=== PATIENT | male | born 1990 | race Caucasian/White ===

== ENCOUNTER 2017-04-10 19:11 | Observation (INO) ==
[2017-04-10 19:35] LABS: Basophils # 0.1 K/mcL (0.0-0.2); Basophils % 0.5 %; Eosinophils % 0.1 %; Hemoglobin 17.1 g/dL (12.9-16.9); Immature Granulocytes % 0.8 % (0-4); Lymphocytes # 0.8 K/mcL (0.6-4.6); Lymphocytes % 4.2 %; Mean Corpuscular HGB Conc 34.2 g/dL (31.6-35.5); Mean Corpuscular Hemoglobin 31.2 pg (28.0-33.3); Mean Corpuscular Volume 91.2 fL (83.0-100.0); Mean Platelet Volume 9.7 fL (9.4-12.4); Monocytes # 1.2 K/mcL (0.0-1.3); Monocytes % 6.4 %; Neutrophils # 16.4 K/mcL (1.6-8.9); Platelet Count 420 K/mcL (140-400); Red Blood Count 5.48 M/mcL (4.19-5.50); Red Cell Distribution Width 13.2 % (11.5-14.5)
--- NOTE | 2017-04-10 19:39 | Emergency Department Note ---
Disposition Clinical Impression: DKA (diabetic ketoacidoses), Hyperglycemia Disposition: Admitted As Inpatient Condition: Good Time of Disposition: 00:00 ([facility]) SOB HPI - General Chief Complaint: ED Shortness of Breath/Dyspnea Stated Complaint: Dypnea, wheezing, high blood sugar Time Seen by Provider: 04/10/17 19:15 Source: patient Mode of arrival: ambulatory Limitations: no limitations Nursing Notes Reviewed: Yes Vital Signs Reviewed: Yes - History of Present Illness PT seen earlier at the urgent care they did not check his sugar he presents for she will shortness of breath dyspnea wheezing lightheadedness patient states that he does not feel well patient states he is unable to catch his breath feels lightheaded and dizzy like to pass out denies diarrhea melena hematochezia or hematemesis he is a diabetic he states the last time he had DKA was a number of years ago he states has been drinking limits he has been sick for about a week Pt Subjective Complaint: shortness of breath Onset (ago): hour(s) Context: recent illness Severity: severe Consistency/Duration: constant, gradually worsening Improves with: nothing Worsens with: exertion Known history of: asthma, diabetes Associated symptoms: Reports: wheezing, palpitations, diaphoresis. Denies: chest pain, pain with inspiration, fever, cough, sputum production, lower extremity pain, polyuria, polydipsia, parasthesias, hemoptysis, nausea/vomiting , syncope, abdominal pain, sense of impending doom Treatment prior to arrival: oxygen, bronchodilator Cough present: No Sputum production: No - Related Data Home Medications Medication Instructions Recorded Confirmed Insulin ASPART [NovoLOG] 100 unit SQ DAILY 04/09/17 04/10/17 Previous Rx's Medication Instructions Recorded Benzonatate [Tessalon] 100 mg PO TID #15 capsule 04/09/17 Ibuprofen [Motrin] 800 mg PO Q8HR #30 tablet 04/09/17 Ondansetron HCl [Zofran] 4 mg PO TID #15 tablet 04/09/17 Allergies Allergy/AdvReac Type Severity Reaction Status Date / Time No Known Allergies Allergy Verified 04/09/17 10:16 All systems ED: reviewed and negative except as stated. Review of Systems: As Per HPI Constitutional: Reports: weakness. Denies: fever, chills Eyes: Denies: eye pain, eye discharge ENT ED: Denies: ear pain, throat pain Cardiovascular: Reports: palpitations, dyspnea on exertion Respiratory: Reports: dyspnea, wheezes, sputum production. Denies: cough Gastrointestinal: Denies: abdominal pain, nausea, vomiting Genitourinary: Denies: urgency, dysuria, frequency, testicular mass, genital lesions Musculoskeletal: Denies: back pain Integumentary: Denies: rash, abrasion Neurological: Reports: weakness. Denies: headache Psychiatric: Reports: anxiety. Denies: depression Endocrine: Denies: fatigue Hematological/Lymphatic: Denies: easy bleeding Allergic/Immunologic: Denies: facial swelling Past Medical History - Past Medical History Attestation: Yes The following information was validated with the patient. Source: patient, old records reviewed, nursing notes reviewed Medical history: Reports: non-contributory Surgical history: Reports: no surgical history - Social History Smoking Status: Never smoker Smokeless Tobacco Status: No Alcohol use: Reports: none Drug use: Reports: none Physical Exam - General Limitations: no limitations General appearance: alert, in no apparent distress, anxious - Head Head exam: atraumatic, normocephalic, normal inspection - Eye Eye exam: Present: normal appearance, PERRL, EOMI - ENT ENT exam: normal exam, normal oropharynx, mucous membranes moist, TM's normal bilaterally, normal external ear exam - Neck Neck exam: Present: normal inspection, full ROM, trachea midline - Chest Chest inspection: Present: normal inspection, symmetric chest wall rise - Respiratory Respiratory exam: Present: accessory muscle use, prolonged expiratory phase, other (tahypnea) - Cardiovascular Cardiovascular exam: Present: regular rate, normal rhythm, normal heart sounds - Abdominal Exam Abdominal exam: Present: soft, Non-Tender, normal bowel sounds. Absent: mass, pulsatile mass - Extremities Exam Extremities exam: Present: normal inspection, full ROM, normal capillary refill. Absent: tenderness, pedal edema, joint swelling, calf tenderness - Expanded Lower Extremity Exam Neurovascular/Tendon exam: Present: normal capillary refill, normal fine/light touch Gait: observed and normal - Back Exam Back exam: Present: normal inspection, full ROM. Absent: muscle spasm - Neurological Exam Neurological exam: Present: alert, oriented X3, CN II-XII intact, normal gait - Psychiatric Psychiatric exam: Present: normal affect, normal mood - Skin Skin exam: Present: warm, dry, intact, normal color Course Course Narrative: Patient comes in tachypnic tachycardic with respiratory symptoms the patient is a known diabetic and his got worse today this may be secondary to DKA patient given fluids given aerosols enroute by EMS - Reevaluation(s) Reevaluation #1: labs were repeated showing improvement discussed again with Dr. Diaz his agreed for admission, Vital Signs Temperature 97.9 F 04/10/17 19:14 Pulse Rate 138 04/10/17 19:14 Respiratory Rate 32 04/10/17 19:14 Blood Pressure 132/80 04/10/17 19:14 O2 Sat by Pulse Oximetry 100 04/10/17 19:14 Temperature 98.3 F 04/11/17 01:25 Pulse Rate 125 04/11/17 01:25 Respiratory Rate 28 04/11/17 01:25 Blood Pressure 100/60 04/11/17 01:25 O2 Sat by Pulse Oximetry 100 04/11/17 02:00 Oxygen Delivery Oxygen Delivery Room Air Shortness of Breath/Dyspnea - [facility] Narrative Medical decision making narrative: Diabetic ketoacidosis hyperosmolar coma dehydration possibility of brought on by pneumonia upper respiratory cold or infectious type process or may have mimicked a upper wrist for a cold track or infection - Differential Diagnosis Likely: pneumonia - Medical Records Medical records reviewed: Yes I reviewed the patient's medical records. - Lab Data Lab results reviewed: Yes I reviewed the patient's lab results. Result diagrams: 04/10/17 19:30 04/10/17 23:10 Lab Results 04/10/17 04/10/17 04/10/17 Range/Units 19:30 19:30 19:30 WBC 18.6 H (4.3-11.1) K/mcL RBC 5.48 (4.19-5.50) M/mcL Hgb 17.1 H (12.9-16.9) g/dL Hct 50.0 (37.5-50.1) % MCV 91.2 (83.0-100.0) fL MCH 31.2 (28.0-33.3) pg MCHC 34.2 (31.6-35.5) g/dL RDW 13.2 (11.5-14.5) % Plt Count 420 H (140-400) K/mcL MPV 9.7 (9.4-12.4) fL Immature Gran % 0.8 (0-4) % Seg Neutrophils % 88.0 % Lymphocytes % 4.2 % Monocytes % 6.4 % Eosinophils % 0.1 % Basophils % 0.5 % Neutrophils # 16.4 H (1.6-8.9) K/mcL Lymphocytes # 0.8 (0.6-4.6) K/mcL Monocytes # 1.2 (0.0-1.3) K/mcL Eosinophils # 0.0 (0.0-0.6) K/mcL Basophils # 0.1 (0.0-0.2) K/mcL PT (9.4-12.1) Seconds INR APTT 26.1 (26.0-36.0) Seconds Sodium (136-145) mEq/L Potassium (3.5-4.5) mEq/L Chloride (98-109) mEq/L Carbon Dioxide (19-29) mEq/L BUN (8-26) mg/dL Creatinine (0.72-1.25) mg/dL Est GFR ( Amer) (> 60) Est GFR (Non-Af Amer) (> 60) BUN/Creatinine Ratio (6-26) Glucose (70-99) mg/dL POC Glucose (58-89) Calculated Osmolality (280-300) Lactic Acid (0.5-2.2) mmol/L Calcium (8.6-10.8) mg/dL Total Bilirubin (0.2-1.2) mg/dL AST (5-34) Units/L ALT (0-55) Units/L Alkaline Phosphatase (38-126) Units/L Serum Total Protein (6.0-8.3) g/dL Albumin (3.5-5.0) g/dL Globulin (2.4-3.5) g/dL Albumin/Globulin Ratio (1.1-2.2) Beta-Hydroxybutyric Acd > 2.00 H (0.02-0.27) mmol/L Carbamazepine (4.0-12.0) mcg/mL 04/10/17 04/10/17 04/10/17 Range/Units 19:30 19:30 19:30 WBC (4.3-11.1) K/mcL RBC (4.19-5.50) M/mcL Hgb (12.9-16.9) g/dL Hct (37.5-50.1) % MCV (83.0-100.0) fL MCH (28.0-33.3) pg MCHC (31.6-35.5) g/dL RDW (11.5-14.5) % Plt Count (140-400) K/mcL MPV (9.4-12.4) fL Immature Gran % (0-4) % Seg Neutrophils % % Lymphocytes % % Monocytes % % Eosinophils % % Basophils % % Neutrophils # (1.6-8.9) K/mcL Lymphocytes # (0.6-4.6) K/mcL Monocytes # (0.0-1.3) K/mcL Eosinophils # (0.0-0.6) K/mcL Basophils # (0.0-0.2) K/mcL PT 11.7 (9.4-12.1) Seconds INR 1.1 APTT (26.0-36.0) Seconds Sodium 132 L (136-145) mEq/L Potassium 4.8 H (3.5-4.5) mEq/L Chloride 104 (98-109) mEq/L Carbon Dioxide 5 L* (19-29) mEq/L BUN 13 (8-26) mg/dL Creatinine 1.45 H (0.72-1.25) mg/dL Est GFR ( Amer) > 60 (> 60) Est GFR (Non-Af Amer) 59 L (> 60) BUN/Creatinine Ratio 9 (6-26) Glucose 460 H (70-99) mg/dL POC Glucose (58-89) Calculated Osmolality 294 (280-300) Lactic Acid (0.5-2.2) mmol/L Calcium 8.7 (8.6-10.8) mg/dL Total Bilirubin 0.2 (0.2-1.2) mg/dL AST 11 (5-34) Units/L ALT 21 (0-55) Units/L Alkaline Phosphatase 142 H (38-126) Units/L Serum Total Protein 7.5 (6.0-8.3) g/dL Albumin 3.9 (3.5-5.0) g/dL Globulin 3.6 H (2.4-3.5) g/dL Albumin/Globulin Ratio 1.1 (1.1-2.2) Beta-Hydroxybutyric Acd (0.02-0.27) mmol/L Carbamazepine 0.0 L (4.0-12.0) mcg/mL 04/10/17 04/10/17 04/10/17 Range/Units 20:49 20:56 23:10 WBC (4.3-11.1) K/mcL RBC (4.19-5.50) M/mcL Hgb (12.9-16.9) g/dL Hct (37.5-50.1) % MCV (83.0-100.0) fL MCH (28.0-33.3) pg MCHC (31.6-35.5) g/dL RDW (11.5-14.5) % Plt Count (140-400) K/mcL MPV (9.4-12.4) fL Immature Gran % (0-4) % Seg Neutrophils % % Lymphocytes % % Monocytes % % Eosinophils % % Basophils % % Neutrophils # (1.6-8.9) K/mcL Lymphocytes # (0.6-4.6) K/mcL Monocytes # (0.0-1.3) K/mcL Eosinophils # (0.0-0.6) K/mcL Basophils # (0.0-0.2) K/mcL PT (9.4-12.1) Seconds INR APTT (26.0-36.0) Seconds Sodium 136 (136-145) mEq/L Potassium 3.7 D (3.5-4.5) mEq/L Chloride 107 (98-109) mEq/L Carbon Dioxide 6 L* (19-29) mEq/L BUN 11 (8-26) mg/dL Creatinine 0.96 (0.72-1.25) mg/dL Est GFR ( Amer) > 60 (> 60) Est GFR (Non-Af Amer) > 60 (> 60) BUN/Creatinine Ratio 11 (6-26) Glucose 301 H (70-99) mg/dL POC Glucose 330 H (58-89) Calculated Osmolality 293 (280-300) Lactic Acid 2.4 H (0.5-2.2) mmol/L Calcium 7.3 L D (8.6-10.8) mg/dL Total Bilirubin 0.3 (0.2-1.2) mg/dL AST 10 (5-34) Units/L ALT 16 (0-55) Units/L Alkaline Phosphatase 106 (38-126) Units/L Serum Total Protein 5.8 L D (6.0-8.3) g/dL Albumin 3.1 L D (3.5-5.0) g/dL Globulin 2.7 (2.4-3.5) g/dL Albumin/Globulin Ratio 1.1 (1.1-2.2) Beta-Hydroxybutyric Acd (0.02-0.27) mmol/L Carbamazepine (4.0-12.0) mcg/mL - Radiology Data Radiology results reviewed: Yes I reviewed the patient's radiology results. ITS Impressions Chest X-Ray 04/10/17 19:18 IMPRESSION: No acute findings. D/ / Atilio Thibodeaux / Atilio Thibodeaux Interpreting Provider: Atilio Thibodeaux - EKG Data EKG attestation: Yes I reviewed and interpreted this EKG. EKG results narrative: Sinus tach nonspecific T-wave changes rate 133 P-R 111 QRS 96 QT 309 axis LX Critical Care Time Critical Care Time: Yes Total Critical Care Time: 45 Attestation: Critical care performed: 85 minutes as a result of the patient being in diabetic ketoacidosis that his sugars in the 400s he is showing evidence without elevated beta hydroxybutyrate as well as the respiratory distress and abnormality of the lab showing these CO2 of 5 determining the etiology for this IV hydration given in the IV bicarbonate and then transferring to [facility] for further management patient has an insulin pump we will use this for continued management of his insulin with intermittent dosing of subcutaneous insulin Time is exclusive of separately billable procedures. Time includes: direct patient care, patient reassessment, coordination of patient care, interpretation of data (laboratory data, radiology data, and respiratory data), review of patient's medical records, medical consultation and documentation of patient care. Procedures included in critical care time: Procedures excluded from critical care time:
[2017-04-10 19:40] LABS: INR 1.1; Prothrombin Time 11.7 Seconds (9.4-12.1)
[2017-04-10] MEDS ORDERED: Insulin Regular, Human 100 UNIT/ML SQ ONE (19:45)
[2017-04-10] MEDS: 0.9 % Sodium Chloride 1,000 ML IVC SCH ×2 (20:20→23:15)
[2017-04-10 20:36] LABS: Alanine Aminotransferase 21 Units/L (0-55); Albumin 3.9 g/dL (3.5-5.0); Albumin/Globulin Ratio 1.1 (1.1-2.2); Alkaline Phosphatase 142 Units/L (38-126); Aspartate Amino Transferase 11 Units/L (5-34); BUN/Creatinine Ratio 9 (6-26); Bilirubin,Total 0.2 mg/dL (0.2-1.2); Blood Urea Nitrogen 13 mg/dL (8-26); Calcium 8.7 mg/dL (8.6-10.8); Chloride 104 mEq/L (98-109); Globulin 3.6 g/dL (2.4-3.5); Glucose 460 mg/dL (70-99); Osmolality,Calculated 294 (280-300); Potassium 4.8 mEq/L (3.5-4.5); Sodium 132 mEq/L (136-145); Total Protein 7.5 g/dL (6.0-8.3); eGFR For African Americans > 60 (> 60); eGFR For Non-African Americans 59 (> 60)
[2017-04-10 20:40] LABS: Carbon Dioxide 5 mEq/L (19-29)
[2017-04-10] MEDS ORDERED: 0.9 % Sodium Chloride 1,000 ML IVC ONE (20:44)
[2017-04-10] MEDS ORDERED: *HR* HYDROcodone/Acet 5/325 mg TABLET PO ONE (20:55)
[2017-04-10] MEDS ORDERED: Piperacillin/Tazobactam 3.375 GM/200 ML BAG IVPB ONE (21:12)
[2017-04-10] MEDS ORDERED: Piperacillin/Tazobactam 3.375 GM in D5% in Water (Mini-Bag+) 100 ML IVPB ONE (22:00)
[2017-04-10 23:41] LABS: Alanine Aminotransferase 16 Units/L (0-55); Albumin 3.1 g/dL (3.5-5.0); Albumin/Globulin Ratio 1.1 (1.1-2.2); Alkaline Phosphatase 106 Units/L (38-126); Aspartate Amino Transferase 10 Units/L (5-34); BUN/Creatinine Ratio 11 (6-26); Bilirubin,Total 0.3 mg/dL (0.2-1.2); Blood Urea Nitrogen 11 mg/dL (8-26); Calcium 7.3 mg/dL (8.6-10.8); Chloride 107 mEq/L (98-109); Globulin 2.7 g/dL (2.4-3.5); Glucose 301 mg/dL (70-99); Osmolality,Calculated 293 (280-300); Potassium 3.7 mEq/L (3.5-4.5); Sodium 136 mEq/L (136-145); Total Protein 5.8 g/dL (6.0-8.3); eGFR For African Americans > 60 (> 60); eGFR For Non-African Americans > 60 (> 60)
[2017-04-10 23:44] LABS: Carbon Dioxide 6 mEq/L (19-29)
[2017-04-11] MEDS ORDERED: Ondansetron ODT 4 MG TAB.RAPDIS SL PRN (01:25)
[2017-04-11] MEDS ORDERED: D5% in 0.45% NACL w KCl 20 MEQ/1,000 ML MLS IVC PRN (01:25)
[2017-04-11] MEDS ORDERED: Dextrose Gel 15 GM PO PRN ×2 (01:25)
[2017-04-11] MEDS ORDERED: Piperacillin/Tazobactam 3.375 GM/200 ML BAG IVPB ONE (01:25)
[2017-04-11] MEDS ORDERED: Naloxone 0.4 MG/ML INJ IVP PRN (01:25)
[2017-04-11] MEDS ORDERED: Acetaminophen 325 MG TABLET PO PRN (01:25)
[2017-04-11] MEDS ORDERED: *HR* Dextrose 50 % in Water (Syg) 50 ML SYRINGE IVP PRN (01:25)
[2017-04-11] MEDS ORDERED: Insulin Regular, Human 100 UNIT/ML IV PRN (01:25)
[2017-04-11] MEDS ORDERED: D5% in Water 1,000 ML IVC PRN (01:25)
[2017-04-11] MEDS: 0.9 % Sodium Chloride 1,000 ML IVC SCH ×7 (01:38→11:04)
[2017-04-11 05:53] LABS: Prothrombin Time 10.8 Seconds (9.4-12.1)
[2017-04-11 06:02] LABS: BUN/Creatinine Ratio 9 (6-26); Blood Urea Nitrogen 7 mg/dL (8-26); Calcium 7.2 mg/dL (8.6-10.8); Chloride 113 mEq/L (98-109); Glucose 167 mg/dL (70-99); Osmolality,Calculated 284 (280-300); Potassium 3.1 mEq/L (3.5-4.5); Sodium 136 mEq/L (136-145); eGFR For African Americans > 60 (> 60); eGFR For Non-African Americans > 60 (> 60)
[2017-04-11 06:14] LABS: Activated Partial Thrombo Time 23.7 Seconds (26.0-36.0)
[2017-04-11 06:46] LABS: Carbon Dioxide < 5 mEq/L (19-29)
[2017-04-11] MEDS: INSULIN PUMP SQ SCH ×2 (07:41→10:11)
[2017-04-11] MEDS ORDERED: Piperacillin/Tazobactam 3.375 GM in D5% in Water (Mini-Bag+) 100 ML IVPB SCH (08:00)
[2017-04-11] MEDS ORDERED: *HR* Etomidate 20 MG/10 ML AMPUL IVP ONE (08:00)
[2017-04-11] MEDS ORDERED: *HR* Succinylcholine 200 MG/10 ML VIAL IVP ONE (08:00)
[2017-04-11 08:41] LABS: ABG PCO2 < 13 mmHg (35-45); ABG PH 7.25 pH Units (7.32-7.45); ABG PO2 121 mmHg (85-104)
[2017-04-11] MEDS: Insulin LISPRO 300 UNITS/3 ML VIAL SQ SCH ×3 (08:56→16:49)
[2017-04-11] MEDS: Piperacillin/Tazobactam 3.375 GM in D5% in Water (Mini-Bag+) 100 ML IVPB SCH ×2 (09:35→15:57)
--- NOTE | 2017-04-11 12:00 | Internal Med History&Physical ---
Date of Encounter: 04/11/17 Time of Encounter: 11:30 Assessment and Plan (1) DKA (diabetic ketoacidoses) Current visit: Yes Status: Acute He has been started on IV fluids and Accu-Cheks with SSI. His insulin pump continues to infuse also. Qualifiers: Diabetes mellitus type: type 1 Diabetes mellitus complication detail: without coma Qualified Code(s): E10.10 - Type 1 diabetes mellitus with ketoacidosis without coma (2) Leukocytosis Current visit: Yes Status: Acute Chest x-ray was unremarkable. He had occasional coughing during examination and I suspect possible viral bronchitis is present. Urine will be checked also. Continue antibiotics at this time. Qualifiers: Leukocytosis type: unspecified Qualified Code(s): D72.829 - Elevated white blood cell count, unspecified Internal Medicine - H&P: HPI Chief complaint: DKA Admitted From: Emergency Dept Plans for Post Hospital Care: Home History of present illness: Mr. Aburto is a 27 year old male came to emergency room complaining of dyspnea. He had been seen earlier in the day at a local urgent care who was diagnosed with bronchitis. He was given treatment but did not feel improved so came to emergency room. He was found to have DKA and was admitted to [facility] floor for ongoing care needs. He reports previous DKA at age 12. He was diagnosed with DM type I at age 9 and has had an insulin pump since age 11. He checks his blood sugars regularly 3 -4 times daily and states results in the past few days of been between 150-250 mg percent. He denies infectious symptoms such as productive cough vomiting diarrhea fevers chills or myalgias. His endocrine history is negative for known thyroid disease or hyperlipidemia. Past Med Surg Social Fam HX - Past Medical History Medical history: non-contributory Psychiatric history: no psych history - Past Surgical History Surgical History: no surgical history - Social History Smoking Status: Never smoker Smokeless Tobacco Status: No Alcohol use: none Drug use: none - Family History Father Age: 60 Living Status: Still Living Hx Family Endocrine Disorder: Yes (diabetic type 2) Grandfather Living Status: Cause of : colon cancer Hx Family Cancer: Yes Internal Medicine - H&P: Meds Benzonatate [Tessalon] 100 mg PO TID #15 capsule 04/09/17 [Rx] Ibuprofen [Motrin] 800 mg PO Q8HR #30 tablet 04/09/17 [Rx] Insulin ASPART [NovoLOG] 100 unit SQ DAILY 04/09/17 [History] Ondansetron HCl [Zofran] 4 mg PO TID #15 tablet 04/09/17 [Rx] 3 Allergy/AdvReac Type Severity Reaction Status Date / Time No Known Allergies Allergy Verified 04/09/17 10:16 All Systems PM: A 10-system review of systems was performed and is negative for pertinent findings except as documented above in the HPI. Review of systems: Gen.: He states his weight has been stable past few months Cardiovascular: He denies MA hypertension heart failure angina DVT or pulmonary embolus Respiratory: He is a lifelong nonsmoker and has no known chronic lung disease GI: Denies disorders of his liver gallbladder or exocrine pancreas : He denies hematuria dysuria or kidney stones Neurologic: He denies large distribution strokes or seizures Endocrine: As per history of present illness Hematology/oncology: Denies blood disorders cancers or anemia Psychiatric: Denies anxiety depression or other mental health issues Musk skeletal: He denies arthritis gout or other bone joint or muscle disorders. - Constitutional Vitals: Temp Pulse Resp BP Pulse Ox 98.3 F 122 30 113/67 100 04/11/17 06:51 04/11/17 06:51 04/11/17 08:17 04/11/17 06:51 04/11/17 06:51 Exam: Gen.: He is a well-developed overweight male who appears dyspneic and tachypneic HEENT: Head is atraumatic and normocephalic. Eyes: EOMI. There is no scleral icterus. Mouth: Mucosa is moist. Neck: Supple and nontender. There is no thyromegaly or adenopathy noted. Heart: Regular and tachycardic without murmurs or gallops Lungs: No wheezes or crackles are heard. Abdomen: He has an insulin pump needle in his right abdominal wall. Abdomen is soft and nontender. No masses or guarding are noted. Extremities: There is no cyanosis edema or clubbing noted. Dorsalis pedis and posterior tibial pulses are trace palpable bilaterally. Neurologic: Mental status: He is talkative and a good historian. Cranial nerves : Smile is symmetric. Forehead wrinkles bilaterally. Tongue protrudes midline. EOMI. Motor: There is no pronator drift. Cerebellar: Finger to nose is intact bilaterally. Skin: Warm and dry Internal Med - H&P Results - Labs CBC & Chem 7: 04/10/17 19:30 04/11/17 05:40 Labs: BMP 04/11/17 05:40 Sodium 136 Potassium 3.1 L Chloride 113 H Carbon Dioxide < 5 L* BUN 7 L Creatinine 0.81 Glucose 167 H Calcium 7.2 L - ABG Interpretation ABG results: 04/11/17 08:35 ABG pH 7.25 L ABG pCO2 < 13 L* ABG pO2 121 H ABG HCO3 TNP ABG Total CO2 TNP ABG O2 Saturation TNP ABG Base Excess TNP
[2017-04-11] MEDS: 0.9 % Sodium Chloride w KCl 20 MEQ/1,000 ML MLS IVC SCH ×2 (12:54→19:45)
[2017-04-11] MEDS: Doxycycline 100 MG in 0.9 % Sodium Chloride Mini Bag 100 ML IVPB SCH ×2 (13:29→18:11)
[2017-04-11 14:53] LABS: Basophils # 0.1 K/mcL (0.0-0.2); Basophils % 0.4 %; Hematocrit 46.3 % (37.5-50.1); Hemoglobin 15.1 g/dL (12.9-16.9); Immature Granulocytes % 0.4 % (0-4); Lymphocytes # 0.6 K/mcL (0.6-4.6); Lymphocytes % 3.9 %; Mean Corpuscular HGB Conc 32.6 g/dL (31.6-35.5); Mean Corpuscular Hemoglobin 31.5 pg (28.0-33.3); Mean Corpuscular Volume 96.5 fL (83.0-100.0); Mean Platelet Volume 9.9 fL (9.4-12.4); Monocytes # 0.9 K/mcL (0.0-1.3); Monocytes % 5.7 %; Neutrophils # 14.4 K/mcL (1.6-8.9); Platelet Count 305 K/mcL (140-400); Red Cell Distribution Width 13.6 % (11.5-14.5); Segmented Neutrophils % 89.6 %
[2017-04-11 15:10] LABS: Magnesium 2.1 mg/dL (1.6-2.6)
[2017-04-11 15:11] LABS: Alanine Aminotransferase 20 Units/L (0-55); Albumin 3.3 g/dL (3.5-5.0); Albumin/Globulin Ratio 1.1 (1.1-2.2); Alkaline Phosphatase 118 Units/L (38-126); Aspartate Amino Transferase 13 Units/L (5-34); BUN/Creatinine Ratio 8 (6-26); Bilirubin,Total 0.3 mg/dL (0.2-1.2); Blood Urea Nitrogen 9 mg/dL (8-26); Calcium 8.7 mg/dL (8.6-10.8); Chloride 112 mEq/L (98-109); Glucose 328 mg/dL (70-99); Osmolality,Calculated 293 (280-300); Potassium 3.6 mEq/L (3.5-4.5); Sodium 136 mEq/L (136-145); Total Protein 6.3 g/dL (6.0-8.3); eGFR For African Americans > 60 (> 60); eGFR For Non-African Americans > 60 (> 60)
[2017-04-11 15:27] LABS: Carbon Dioxide < 5 mEq/L (19-29)
[2017-04-11] MEDS ORDERED: Insulin Human Regular 100 UNIT in 0.9 % Sodium Chloride 100 ML IVC SCH (16:15)
[2017-04-11 17:05] LABS: Bilirubin,Urine Negative (Negative); Blood,Urine Small (Negative); Clarity,Urine Clear (Clear); Glucose,Urine (UA) 500 mg/dL (Normal); Ketones,Urine >=160 mg/dL (Negative); Leukocyte Esterase,Urine Negative (Negative); Nitrite,Urine Negative (Negative); Protein,Urine 30 mg/dL (Neg-Trace); Urobilinogen,Urine Normal (Normal)
[2017-04-11 17:15] LABS: Bacteria,Urine Few per hpf (None-Few); Color,Urine Light Yellow (Yellow); Granular Casts,Urine Moderate per lpf (None Seen); RBC,Urine 0-3 per hpf (0-3); Squamous Epithelial Cell,Urine Few per lpf (None-Few); WBC,Urine 0-3 per hpf (0-3)
[2017-04-11 20:30] LABS: ABG Base Excess -25 mEq/L (-2 to 3); ABG HCO3 4 mEq/L (21-27); ABG Oxygen Saturation 97 % (95-98); ABG PCO2 17 mmHg (35-45); ABG PH 7.01 pH Units (7.32-7.45); ABG PO2 133 mmHg (85-104); ABG TCO2 5 mEq/L (20-26)
[2017-04-11] MEDS ORDERED: Ondansetron 4 MG/2 ML VIAL ONE (20:54)
[2017-04-11 20:58] LABS: Basophils % 0.2 %; Hematocrit 45.9 % (37.5-50.1); Hemoglobin 15.1 g/dL (12.9-16.9); Immature Granulocytes % 0.6 % (0-4); Lymphocytes # 0.6 K/mcL (0.6-4.6); Lymphocytes % 2.8 %; Mean Corpuscular HGB Conc 32.9 g/dL (31.6-35.5); Mean Corpuscular Hemoglobin 30.9 pg (28.0-33.3); Mean Corpuscular Volume 93.9 fL (83.0-100.0); Mean Platelet Volume 9.8 fL (9.4-12.4); Neutrophils # 17.9 K/mcL (1.6-8.9); Platelet Count 371 K/mcL (140-400); Red Blood Count 4.89 M/mcL (4.19-5.50); Red Cell Distribution Width 13.7 % (11.5-14.5); Segmented Neutrophils % 91.4 %
[2017-04-11 21:06] LABS: BUN/Creatinine Ratio 8 (6-26); Blood Urea Nitrogen 9 mg/dL (8-26); Calcium 8.1 mg/dL (8.6-10.8); Chloride 114 mEq/L (98-109); Glucose 204 mg/dL (70-99); Osmolality,Calculated 293 (280-300); Sodium 139 mEq/L (136-145); eGFR For African Americans > 60 (> 60); eGFR For Non-African Americans > 60 (> 60)
[2017-04-11 21:13] LABS: Carbon Dioxide < 5 mEq/L (19-29)
[2017-04-11] MEDS ORDERED: Vancomycin 1,000 MG in D5% in Water 250 ML IVPB ONE (21:39)
[2017-04-11] MEDS ORDERED: Ondansetron 4 MG/2 ML VIAL IVP ONE (21:42)
[2017-04-11 21:48] LABS: Bilirubin,Urine Negative (Negative); Blood,Urine Small (Negative); Clarity,Urine Clear (Clear); Color,Urine Yellow (Yellow); Glucose,Urine (UA) 250 mg/dL (Normal); Ketones,Urine >=160 mg/dL (Negative); Leukocyte Esterase,Urine Negative (Negative); Nitrite,Urine Negative (Negative); Protein,Urine 100 mg/dL (Neg-Trace); Specific Gravity,Urine 1.025 (1.010-1.025); Urobilinogen,Urine Normal (Normal)
[2017-04-11 22:08] LABS: Amphetamine Screen,Urine Negative ng/mL (Cutoff=1000); Barbiturate Screen,Urine Negative ng/mL (Cutoff=200); Benzodiazepines Screen,Urine Negative ng/mL (Cutoff=200); Cannabinoid Screen,Urine Negative ng/mL (Cutoff = 50); Cocaine Screen,Urine Negative ng/mL (Cutoff= 300); Opiate Screen,Urine Negative ng/mL (Cutoff=300); Phencyclidine Screen,Urine Negative ng/mL (Cutoff=25)
[2017-04-11] MEDS ORDERED: Propofol 500 MG/50 ML INFUS..BTL ONE (22:57)
[2017-04-11] MEDS ORDERED: 0.9 % Sodium Chloride 1,000 ML ONE (23:02)
[2017-04-12 04:28] VITALS: BP 151/92
--- NOTE | 2017-04-12 17:26 | Discharge Summary ---
Date of Encounter: 04/12/17 Time of Encounter: 17:20 - Discharge Diagnosis (1) DKA (diabetic ketoacidoses) Priority: Primary Status: Acute Qualifiers: Diabetes mellitus type: type 1 Diabetes mellitus complication detail: without coma Qualified Code(s): E10.10 - Type 1 diabetes mellitus with ketoacidosis without coma (2) Leukocytosis Priority: Secondary Status: Acute Qualifiers: Leukocytosis type: unspecified Qualified Code(s): D72.829 - Elevated white blood cell count, unspecified - Discharge Medications Home Medications: Benzonatate [Tessalon] 100 mg PO TID #15 capsule 04/09/17 [Rx] Ibuprofen [Motrin] 800 mg PO Q8HR #30 tablet 04/09/17 [Rx] Insulin ASPART [NovoLOG] 100 unit SQ DAILY 04/09/17 [History] Ondansetron HCl [Zofran] 4 mg PO TID #15 tablet 04/09/17 [Rx] Allergies/Adverse Reactions: 3 Allergy/AdvReac Type Severity Reaction Status Date / Time No Known Allergies Allergy Verified 04/09/17 10:16 Procedures/tests Complete & Pending: Procedures Performed prior 72 hours Category Date Time Status CT head/brain wo con [CT] Stat Cat Scan 04/11/17 21:07 Completed EKG [ECG 12 lead ECG] [ECG] Stat Y 04/11/17 21:37 Completed Date of admission: 04/11/17 01:04 Primary care physician: Chelsea Holt CNP - Patient Status Disposition: Transfer Other Condition: Good - Discharge Instructions Forms: ED Satisfaction Letter Hospital course: Mr. Aburto is a 27 year old male who came to emergency room complaining of dyspnea. He had been seen earlier in the day at a local urgent care who was diagnosed with bronchitis. He was given treatment but did not feel improved so came to emergency room. He was found to have DKA and was admitted to [facility] floor for ongoing care needs. Initial orders were written by emergency room physician. I saw him on April 11 and performed a history and physical. He was started on IV fluids and Accu- Cheks with SSI through emergency room. His insulin pump was also continuing to infuse. He had persistent acidosis requiring several amps of bicarbonate throughout the day. He had been started on Zosyn through emergency room. I added IV doxycycline after seeing him and IV vancomycin a few hours later. An insulin drip was started the afternoon of March 12 and his blood sugars returned to a safe range. Lactic acid returned within normal range but he had persistent ketoacidosis present. Head CT was severely limited study because of artifact. There is a question of temporal lobe ischemia versus artifact. In view of his unimproved condition I felt he should be transferred to [facility] for ongoing care needs. He was accepted in transfer the evening of April 11. The [facility] emergency room physician performed elective endotracheal intubation prior to departure from [facility] after the patient had decline in mental status. - Time Spent with Patient Total time spent providing and/or coordinating discharge services: - Constitutional Vitals: Temp Pulse Resp BP Pulse Ox 97.4 F L 120 32 151/92 100 04/11/17 22:44 04/11/17 23:07 04/11/17 22:44 04/11/17 23:07 04/11/17 23:07
--- NOTE | 2017-04-14 07:00 | Electrocardiograph Report ---
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
--- NOTE | 2017-04-14 18:13 | Electrocardiograph Report ---
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
== END 2017-04-11 23:33 | disposition short-term general hospital (02) ==
LOC: INPPIK 19:11 → EMEROOPIK 19:11 → INPPIK 04-11 01:20
PROVIDERS: ADMIT Internal Medicine; ATTEND Internal Medicine